=== PATIENT | male | born 1960 | race Caucasian/White ===

== ENCOUNTER 2021-10-08 00:28 | Emergency (ER) | payer OTHER ==
[~2021-10-08 00:28] MED LIST: PREDNISONE 10 M10 MG PO
[2021-10-08 01:33] LABS: HEMOGLOBIN 17.4 gm/dl (14.0-17.5); RED BLOOD COUNT 5.51 M/UL (4.20-5.50); WHITE BLOOD COUNT 7.1 K/UL (4.5-11.0)
[2021-10-08 02:18] LABS: BUN/CREATININE RATIO 14 (0-10)
[2021-10-08] MEDS ORDERED: PROAIR HFA8.5 GM INH (04:33)
[2021-10-08] MEDS ORDERED: PREDNISONE 20 M20 MG PO (04:33)
== END 2021-10-08 05:00 | disposition home or self-care (01) ==
LOC: ER1 00:28
PROVIDERS: Physician Assistant
DX: J45.901 Unspecified asthma with (acute) exacerbation (principal); E11.9 Type 2 diabetes mellitus without complications; I10 Essential (primary) hypertension; Z79.4 Long term (current) use of insulin; Z86.73 Personal history of transient ischemic attack (TIA), and cerebral infarction without residual deficits; Z20.822 Contact with and (suspected) exposure to COVID-19
CPT/HCPCS: 71045; 80053; 82550; 82553; 83874; 83880; 84484; 85025; 93005; 94664; 99285; U0002

== ENCOUNTER → 2021-11-27 | Outpatient (CLI) | payer OTHER ==
[~2021-11-27] MED LIST changes: +PREDNISONE 20 M20 MG PO; +PROAIR HFA8.5 GM INH
== END ==
LOC: KOH-I 15:22
DX: R42 Dizziness and giddiness (principal); R11.0 Nausea; E11.9 Type 2 diabetes mellitus without complications; G31.9 Degenerative disease of nervous system, unspecified
CPT/HCPCS: 70450

== ENCOUNTER → 2022-06-26 | Outpatient (CLI) | payer OTHER | LOC: KOH-I 16:43 | DX: M54.50 Low back pain, unspecified (principal); M47.812 Spondylosis without myelopathy or radiculopathy, cervical region; M47.817 Spondylosis without myelopathy or radiculopathy, lumbosacral region | CPT/HCPCS: 72040; 72100 ==